=== PATIENT | female | born 1960 | race Caucasian/White ===

== ENCOUNTER 2016-12-07 09:33 | Observation (INO) ==
[2016-12-07] MEDS ORDERED: 0.9 % Sodium Chloride 500 ML IVC ONE (09:54)
[2016-12-07] MEDS ORDERED: Aspirin 81 MG TAB.CHEW PO ONE (09:54)
[2016-12-07] MEDS ORDERED: Nitroglycerin 1 INCH/GM PACKET TP ONE (09:54)
--- NOTE | 2016-12-07 09:57 | Emergency Department Note ---
Disposition Clinical Impression: Chest pain Qualifiers: Chest pain type: unspecified Qualified Code(s): R07.9 - Chest pain, unspecified Disposition: Admitted As Inpatient Condition: Good Referrals: Davie Reyes DO [Emergency Provider] - Forms: ED Satisfaction Letter Time of Disposition: 12:30 Chest Pain HPI - General Chief Complaint: ED Chest Pain Stated Complaint: chest pain Source: patient Limitations: no limitations - History of Present Illness HPI Narrative: Patient presents to the emergency department for evaluation of chest pain. Patient states that the pain awoke her this morning at approximately 6 AM, she describes it as a squeezing sensation across her chest. There is no radiation or migration of the pain. She states that the pain is been intermittent without any obvious exacerbating or alleviating features. She states that she has felt some slight dyspnea and nausea with this but no vomiting or diaphoresis. My examination she states her pain is approximately 3 out of 10. She denies prior cardiac history. She does state that her father and multiple siblings have had cardiac disease. She denies recent travel or prolonged immobilization. She denies family history of aortic pathology. Severity scale (1-10): 5 - Related Data Home Medications Medication Instructions Recorded Confirmed FLUoxetine HCl [Sarafem] 20 mg PO DAILY 11/20/15 12/07/16 Gabapentin [Neurontin] 800 mg PO TID 11/20/15 12/07/16 Promethazine [Phenergan] 25 mg PO Q8H PRN 11/20/15 12/07/16 Ranitidine Oral Soln [Zantac] 150 mg PO BID 11/20/15 12/07/16 Roflumilast [Daliresp] 500 mcg PO DAILY 11/20/15 12/07/16 Tiotropium [Spiriva] 18 mcg IH DAILY 11/20/15 12/07/16 ALPRAZolam [Xanax 1 MG Tablet] 2 mg PO TID 12/07/16 12/07/16 Albuterol Sulfate [Proair Hfa] 1 puff IH Q4H PRN 12/07/16 12/07/16 Budesonide/Formoterol 160/4.5 1 puff IH BIDR 12/07/16 12/07/16 [Symbicort 160/4.5] Nabumetone 750 mg PO BID 12/07/16 12/07/16 Oxycodone HCl [Oxycodone HCl ER] 15 mg PO QID 12/07/16 12/07/16 Allergies Allergy/AdvReac Type Severity Reaction Status Date / Time No Known Allergies Allergy Verified 12/20/14 12:59 Constitutional: Denies: fever, chills, weakness Eyes: Denies: vision change ENT ED: Denies: dysphagia Cardiovascular: Reports: chest pain. Denies: palpitations, dyspnea on exertion , orthopnea, edema, syncope, paroxysmal nocturnal dyspnea Respiratory: Reports: dyspnea. Denies: cough, wheezes, hemoptysis Gastrointestinal: Denies: abdominal pain, nausea, vomiting, diarrhea Genitourinary: Denies: urgency, dysuria, frequency Musculoskeletal: Denies: back pain Integumentary: Denies: rash Psychiatric: Denies: anxiety Chest Pain PMH - Past Medical History Medical history: Reports: arthritis, asthma, COPD, GERD, other Surgical history: Denies: angioplasty/stent Psychiatric history: Reports: anxiety, depression - Social History Smoking Status: Current some day smoker Alcohol use: Reports: none Drug use: Reports: none Physical Exam - General Limitations: no limitations General appearance: alert, in no apparent distress - Head Head exam: atraumatic - Eye Eye exam: Present: normal appearance, PERRL, EOMI - ENT ENT exam: normal exam, normal oropharynx, mucous membranes moist - Respiratory Respiratory exam: Present: normal lung sounds bilaterally - Cardiovascular Cardiovascular exam: Present: regular rate, normal rhythm, normal heart sounds - Abdominal Exam Abdominal exam: Present: soft, Non-Tender, normal bowel sounds. Absent: tenderness, distention, guarding, rebound, rigidity - Extremities Exam Extremities exam: Present: normal inspection, full ROM. Absent: tenderness, pedal edema, calf tenderness - Expanded Lower Extremity Exam Neurovascular/Tendon exam: Present: normal capillary refill, normal 2-point discrimination, normal fine/light touch. Absent: pulse deficit, extremity cold to touch - Back Exam Back exam: Absent: tenderness - Neurological Exam Neurological exam: Present: alert, oriented X3 - Psychiatric Psychiatric exam: Present: normal affect, normal mood - Skin Skin exam: Present: warm, dry, intact, normal color Course Vital Signs Temperature 97.9 F 12/07/16 09:34 Pulse Rate 75 12/07/16 09:34 Respiratory Rate 16 12/07/16 09:34 Blood Pressure 111/60 12/07/16 09:34 O2 Sat by Pulse Oximetry 98 12/07/16 09:34 Temperature 97.9 F 12/07/16 09:34 Pulse Rate 75 12/07/16 12:25 Respiratory Rate 16 12/07/16 12:25 Blood Pressure 92/63 12/07/16 12:25 O2 Sat by Pulse Oximetry 96 12/07/16 12:25 Oxygen Delivery Oxygen Delivery Nasal Cannula Chest Pain - Lab Data Lab results reviewed: Yes I reviewed the patient's lab results. Result diagrams: 12/07/16 09:55 12/07/16 09:55 Lab Results 12/07/16 12/07/16 12/07/16 Range/Units 09:55 09:55 09:55 WBC 8.0 (4.3-11.1) K/mcL RBC 4.78 (3.82-4.97) M/mcL Hgb 13.8 (11.5-15.4) g/dL Hct 39.3 (35.3-44.9) % MCV 82.2 L (83.0-100.0) fL MCH 28.9 (28.0-33.3) pg MCHC 35.1 (31.6-35.5) g/dL RDW 12.9 (11.5-14.5) % Plt Count 239 (140-400) K/mcL MPV 9.8 (9.4-12.4) fL Immature Gran % 0.4 (0-4) % Seg Neutrophils % 61.0 % Lymphocytes % 27.5 % Monocytes % 6.2 % Eosinophils % 4.2 % Basophils % 0.7 % Neutrophils # 4.9 (1.6-8.9) K/mcL Lymphocytes # 2.2 (0.6-4.6) K/mcL Monocytes # 0.5 (0.0-1.3) K/mcL Eosinophils # 0.3 (0.0-0.6) K/mcL Basophils # 0.1 (0.0-0.2) K/mcL PT 10.3 (9.4-12.1) Seconds INR 1.0 APTT 30.9 (26.0-36.0) Seconds Sodium (136-145) mEq/L Potassium (3.5-4.5) mEq/L Chloride (98-109) mEq/L Carbon Dioxide (19-29) mEq/L BUN (7-20) mg/dL Creatinine (0.57-1.11) mg/dL Est GFR ( Amer) (> 60) Est GFR (Non-Af Amer) (> 60) BUN/Creatinine Ratio (6-26) Glucose (70-99) mg/dL Calculated Osmolality (280-300) Calcium (8.6-10.8) mg/dL Total Bilirubin 0.3 (0.2-1.2) mg/dL Direct Bilirubin < 0.1 (0.0-0.5) mg/dL Indirect Bilirubin 0.2 (0.0-1.2) mg/dL AST 20 (5-34) Units/L ALT 17 (0-55) Units/L Alkaline Phosphatase 100 (38-126) Units/L Troponin I (0-0.03) ng/mL Serum Total Protein 7.8 (6.0-8.3) g/dL Albumin 3.8 (3.5-5.0) g/dL Globulin 4.0 H (2.4-3.5) g/dL Albumin/Globulin Ratio 1.0 L (1.1-2.2) Lipase 33 (8-78) Units/L 12/07/16 12/07/16 12/07/16 Range/Units 09:55 09:55 11:49 WBC (4.3-11.1) K/mcL RBC (3.82-4.97) M/mcL Hgb (11.5-15.4) g/dL Hct (35.3-44.9) % MCV (83.0-100.0) fL MCH (28.0-33.3) pg MCHC (31.6-35.5) g/dL RDW (11.5-14.5) % Plt Count (140-400) K/mcL MPV (9.4-12.4) fL Immature Gran % (0-4) % Seg Neutrophils % % Lymphocytes % % Monocytes % % Eosinophils % % Basophils % % Neutrophils # (1.6-8.9) K/mcL Lymphocytes # (0.6-4.6) K/mcL Monocytes # (0.0-1.3) K/mcL Eosinophils # (0.0-0.6) K/mcL Basophils # (0.0-0.2) K/mcL PT (9.4-12.1) Seconds INR APTT (26.0-36.0) Seconds Sodium 133 L (136-145) mEq/L Potassium 3.8 (3.5-4.5) mEq/L Chloride 97 L (98-109) mEq/L Carbon Dioxide 22 (19-29) mEq/L BUN 10 (7-20) mg/dL Creatinine 1.17 H (0.57-1.11) mg/dL Est GFR ( Amer) 58 L (> 60) Est GFR (Non-Af Amer) 48 L (> 60) BUN/Creatinine Ratio 9 (6-26) Glucose 87 (70-99) mg/dL Calculated Osmolality 274 L (280-300) Calcium 9.0 (8.6-10.8) mg/dL Total Bilirubin (0.2-1.2) mg/dL Direct Bilirubin (0.0-0.5) mg/dL Indirect Bilirubin (0.0-1.2) mg/dL AST (5-34) Units/L ALT (0-55) Units/L Alkaline Phosphatase (38-126) Units/L Troponin I 0.00 0.00 (0-0.03) ng/mL Serum Total Protein (6.0-8.3) g/dL Albumin (3.5-5.0) g/dL Globulin (2.4-3.5) g/dL Albumin/Globulin Ratio (1.1-2.2) Lipase (8-78) Units/L ITS Impressions Chest X-Ray 12/07/16 09:54 IMPRESSION: No acute cardiopulmonary findings. D/ / Briana Villegas MD / Briana Villegas MD Interpreting Provider: Briana Villegas MD - Radiology Data Radiology results reviewed: Yes I reviewed the patient's radiology results. - EKG Data EKG attestation: Yes I reviewed and interpreted this EKG. EKG shows normal: sinus rhythm (Normal sinus rhythm with a rate of 71. Left axis deviation. Nonspecific changes without evidence of acute ST segment or T- wave change.)
[2016-12-07 10:08] LABS: Basophils # 0.1 K/mcL (0.0-0.2); Basophils % 0.7 %; Eosinophils # 0.3 K/mcL (0.0-0.6); Eosinophils % 4.2 %; Hematocrit 39.3 % (35.3-44.9); Hemoglobin 13.8 g/dL (11.5-15.4); Immature Granulocytes % 0.4 % (0-4); Lymphocytes # 2.2 K/mcL (0.6-4.6); Lymphocytes % 27.5 %; Mean Corpuscular HGB Conc 35.1 g/dL (31.6-35.5); Mean Corpuscular Hemoglobin 28.9 pg (28.0-33.3); Mean Corpuscular Volume 82.2 fL (83.0-100.0); Mean Platelet Volume 9.8 fL (9.4-12.4); Monocytes # 0.5 K/mcL (0.0-1.3); Monocytes % 6.2 %; Neutrophils # 4.9 K/mcL (1.6-8.9); Platelet Count 239 K/mcL (140-400); Red Blood Count 4.78 M/mcL (3.82-4.97); Red Cell Distribution Width 12.9 % (11.5-14.5)
[2016-12-07 10:15] LABS: Prothrombin Time 10.3 Seconds (9.4-12.1)
[2016-12-07 10:17] LABS: Activated Partial Thrombo Time 30.9 Seconds (26.0-36.0)
[2016-12-07 10:39] LABS: Potassium 3.8 mEq/L (3.5-4.5)
[2016-12-07 11:06] LABS: Alanine Aminotransferase 17 Units/L (0-55); Albumin 3.8 g/dL (3.5-5.0); Alkaline Phosphatase 100 Units/L (38-126); Aspartate Amino Transferase 20 Units/L (5-34); Bilirubin,Direct < 0.1 mg/dL (0.0-0.5); Bilirubin,Indirect 0.2 mg/dL (0.0-1.2); Bilirubin,Total 0.3 mg/dL (0.2-1.2); Lipase 33 Units/L (8-78); Total Protein 7.8 g/dL (6.0-8.3)
[2016-12-07] MEDS: Gabapentin 400 MG CAPSULE PO SCH ×2 (15:05→20:36)
[2016-12-07] MEDS: ALPRAZolam 1 MG TABLET PO SCH ×2 (15:05→20:36)
--- NOTE | 2016-12-07 16:11 | Electrocardiograph Report ---
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
--- NOTE | 2016-12-07 16:27 | Internal Med History&Physical ---
Date of Encounter: 12/07/16 Time of Encounter: 16:00 Assessment and Plan (1) Chest pain Current visit: Yes Status: Acute Repeat cardiac enzymes were ordered through emergency room. Will also order d- dimer. Qualifiers: Chest pain type: unspecified Qualified Code(s): R07.9 - Chest pain, unspecified (2) COPD (chronic obstructive pulmonary disease) Current visit: Yes Status: Chronic Continue home pulmonary regimen and oxygen. Qualifiers: COPD type: unspecified COPD Qualified Code(s): J44.9 - Chronic obstructive pulmonary disease, unspecified (3) Azotemia Current visit: Yes Status: Acute Suspect chronic kidney disease stage III. Creatinine was 1.30 in November 2015. Will hold NSAIDs and recheck labs in a.m. (4) Microcytosis Current visit: Yes Status: Acute We will check labs in a.m. (5) Peripheral neuropathy Current visit: Yes Status: Acute We will check labs in a.m. Qualifiers: Peripheral neuropathy type: polyneuropathy, unspecified Qualified Code(s): G62.9 - Polyneuropathy, unspecified Internal Medicine - H&P: HPI Chief complaint: Chest pain Admitted From: Home Plans for Post Hospital Care: Home History of present illness: Ms. Sanchez is a 56 year old female who came to emergency room stating she was awakened by chest pain and dyspnea approximately 6 AM. She took an oxycodone with slight improvement after 15-20 minutes. Over the next hour however the pain seemed to worsen. She came to emergency room and was evaluated and admitted to [facility] for ongoing care needs. She describes the initial pain this morning as a squeezing sensation in her mid chest area. That has now resolved and she has only occasional burning pain under her left breast. She denies previous similar pain. She does not get angina or anginal equivalence on minimal exertion. She states she has become very sedentary over the last few weeks to months. Her cardiovascular history is negative for hypertension MD heart failure angina DVT or pulmonary embolus. Past Med Surg Social Fam HX - Past Medical History Medical history: arthritis, asthma, cancer, COPD, GERD, other Psychiatric history: anxiety, depression - Social History Smoking Status: Current some day smoker Smokeless Tobacco Status: No Alcohol use: none Drug use: none - Family History Sister Living Status: Hx Family Cancer: Yes (ovarian, colon, bone) Internal Medicine - H&P: Meds FLUoxetine HCl [Sarafem] 20 mg PO DAILY 11/20/15 [History] Gabapentin [Neurontin] 800 mg PO TID 11/20/15 [History] Promethazine [Phenergan] 25 mg PO Q8H PRN 11/20/15 [History] Ranitidine Oral Soln [Zantac] 150 mg PO BID 11/20/15 [History] Roflumilast [Daliresp] 500 mcg PO DAILY 11/20/15 [History] Tiotropium [Spiriva] 18 mcg IH DAILY 11/20/15 [History] ALPRAZolam [Xanax 1 MG Tablet] 2 mg PO TID 12/07/16 [History] Albuterol Sulfate [Proair Hfa] 1 puff IH Q4H PRN 12/07/16 [History] Budesonide/Formoterol 160/4.5 [Symbicort 160/4.5] 1 puff IH BIDR 12/07/16 [ History] Nabumetone 750 mg PO BID 12/07/16 [History] Oxycodone HCl [Oxycodone HCl ER] 15 mg PO QID 12/07/16 [History] Allergies No Known Allergies Allergy (Verified 12/20/14 12:59) All Systems PM: A 10-system review of systems was performed and is negative for pertinent findings except as documented above in the HPI. Review of systems: Gen.: She states she has gained approximately 10 pounds in the past year due to sedentary lifestyle and eating ice cream Cardiovascular: As per history of present illness Respiratory: She has smoked since age 16 up to 2 packs per day. She has a diagnosis of COPD and wears oxygen at night at 2.5 L/m. GI: She has GERD. She had gastric polyp and EGD 2 years ago. She denies disorders of her liver or exocrine pancreas : She denies hematuria dysuria or kidney stones Neurologic: She has peripheral neuropathy of uncertain etiology. She denies large distribution strokes or seizures. Endocrine: She denies diabetes or thyroid disease or hyperlipidemia Hematology/oncology: She had cervical cancer with curative laser treatment approximately 1993. She denies other internal malignancies or anemia Psychiatric: She has anxiety and depression Musk skeletal: She has DJD. She had C4-6 cervical fusion in the past. - Constitutional Vitals: Temp Pulse Resp BP Pulse Ox 97.9 F 86 16 115/72 96 12/07/16 16:11 12/07/16 16:11 12/07/16 16:11 12/07/16 16:11 12/07/16 16:11 Exam: Gen.: She is a well-developed well-nourished female who appears in minimal distress at present time HEENT: Head is atraumatic and normocephalic. Eyes: EOMI. There is no scleral icterus. Mouth: Mucosa is moist Neck: Supple and nontender. There is a well-healed surgical scar from cervical spine surgery. There is no thyromegaly or adenopathy noted. Heart: Regular without murmurs gallops or ectopics Lungs: No wheezes or crackles are heard. Abdomen: Soft and nontender. No masses or guarding noted. Extremities: There is no cyanosis edema or clubbing noted. Dorsalis pedis and posttibial pulses are 1-2 over 2 bilaterally. Neurologic: Mental status: She is talkative and a good historian. Cranial nerves: Smile is symmetric. Forehead wrinkles bilaterally. Tongue protrudes midline. EOMI. Motor: There is no pronator drift. Cerebellar: Finger to nose is intact bilaterally. Skin: Warm and dry Internal Med - H&P Results - Labs CBC & Chem 7: 12/07/16 09:55 12/07/16 09:55
[2016-12-07] MEDS: *HR* OxyCODONE Immed Rel 15 MG TABLET PO SCH ×2 (17:20→20:36)
[2016-12-07] MEDS: Famotidine 20 MG TABLET PO SCH (20:36)
[2016-12-07] MEDS ORDERED: Budesonide/Formoterol 160/4.5 MDI IH SCH (22:00)
[2016-12-08 05:44] LABS: BUN/Creatinine Ratio 7 (6-26); Blood Urea Nitrogen 8 mg/dL (7-20); Calcium 8.8 mg/dL (8.6-10.8); Carbon Dioxide 23 mEq/L (19-29); Chloride 107 mEq/L (98-109); Glucose 88 mg/dL (70-99); Osmolality,Calculated 290 (280-300); Potassium 4.4 mEq/L (3.5-4.5); Sodium 141 mEq/L (136-145); eGFR For African Americans > 60 (> 60); eGFR For Non-African Americans 50 (> 60)
[2016-12-08 06:06] LABS: Thyroid Stimulating Hormone 2.708 mcIU/mL (0.350-4.840)
[2016-12-08 06:56] VITALS: BP 94/64
[2016-12-08] MEDS: Gabapentin 400 MG CAPSULE PO SCH (08:09)
[2016-12-08] MEDS: Famotidine 20 MG TABLET PO SCH (08:10)
[2016-12-08] MEDS: *HR* OxyCODONE Immed Rel 15 MG TABLET PO SCH (08:10)
[2016-12-08] MEDS: ALPRAZolam 1 MG TABLET PO SCH (08:10)
[2016-12-08] MEDS ORDERED: FLUoxetine 20 MG CAPSULE PO SCH (09:00)
--- NOTE | 2016-12-08 09:04 | Discharge Summary ---
Date of Encounter: 12/08/16 Time of Encounter: 08:55 - Discharge Diagnosis (1) Chest pain Priority: Primary Status: Resolved Qualifiers: Chest pain type: unspecified Qualified Code(s): R07.9 - Chest pain, unspecified (2) COPD (chronic obstructive pulmonary disease) Priority: Secondary Status: Chronic Qualifiers: COPD type: unspecified COPD Qualified Code(s): J44.9 - Chronic obstructive pulmonary disease, unspecified (3) Azotemia Priority: Secondary Status: Chronic (4) Microcytosis Priority: Secondary Status: Acute (5) Peripheral neuropathy Priority: Secondary Status: Chronic Qualifiers: Peripheral neuropathy type: polyneuropathy, unspecified Qualified Code(s): G62.9 - Polyneuropathy, unspecified - Discharge Medications Home Medications: FLUoxetine HCl [Sarafem] 20 mg PO DAILY 11/20/15 [History] Gabapentin [Neurontin] 800 mg PO TID 11/20/15 [History] Promethazine [Phenergan] 25 mg PO Q8H PRN 11/20/15 [History] Ranitidine Oral Soln [Zantac] 150 mg PO BID 11/20/15 [History] Roflumilast [Daliresp] 500 mcg PO DAILY 11/20/15 [History] Tiotropium [Spiriva] 18 mcg IH DAILY 11/20/15 [History] ALPRAZolam [Xanax 1 MG Tablet] 2 mg PO TID 12/07/16 [History] Albuterol Sulfate [Proair Hfa] 1 puff IH Q4H PRN 12/07/16 [History] Budesonide/Formoterol 160/4.5 [Symbicort 160/4.5] 1 puff IH BIDR 12/07/16 [ History] Oxycodone HCl [Oxycodone HCl ER] 15 mg PO QID 12/07/16 [History] Allergies/Adverse Reactions: Allergies No Known Allergies Allergy (Verified 12/20/14 12:59) Date of admission: 12/07/16 12:52 Primary care physician: Elva Ahn CNP Consults: 12/07/16 14:38 Consult to [employer] [CONS] Routine Reason for SW Consult: D/C planning - pt has occupational therapist home based services - daughter is IP - Patient Status Disposition: Home, Self-Care Condition: Good Functional capacity at discharge: independent ambulation Overall status at discharge: patient is progressing back to baseline - Discharge Instructions Follow Up With: Elva Ahn CNP [Primary Care Provider] - 1 week - Diet and Activity Activity: resume usual activities as tolerated Diet: advance to your usual diet Hospital course: Ms. Sanchez is a 56 year old female who came to emergency room stating she was awakened by chest pain and dyspnea approximately 6 AM. She took an oxycodone with slight improvement after 15-20 minutes. Over the next hour however the pain seemed to worsen. She came to emergency room and was evaluated and admitted to [facility] for ongoing care needs. Initial orders were written by the emergency room physician. I saw her on December 07 and performed a history and physical. Repeat cardiac enzymes showed no evidence of myocardial damage. When I saw her I did not think the pain was likely to be of myocardial ischemic damage. Etiology of the pain was not determined with certainty. A d-dimer returned minimally elevated at 747. I did not think she had high likelihood of having a PE and with azotemia I did not feel strongly a chest CTA was needed. She remained asymptomatic after I saw her and on December 08 she wished to be discharged home which I felt was reasonable. She will follow with her PCP Elva Ahn CNP within 1 week. B12 and folate levels are pending at time of discharge. TSH returned normal at 2.708. - Time Spent with Patient Total time spent providing and/or coordinating discharge services: - Constitutional Vitals: Temp Pulse Resp BP Pulse Ox 98.1 F 74 18 94/64 98 12/08/16 06:51 12/08/16 06:51 12/08/16 06:51 12/08/16 06:51 12/08/16 06:51
== END 2016-12-08 10:00 | disposition home or self-care (01) ==
LOC: EMEROOPIK 09:33 → INPPIK 09:33
PROVIDERS: ADMIT Internal Medicine; ATTEND Internal Medicine